=== PATIENT | male | born 1935 | race Caucasian/White ===

== ENCOUNTER 2016-09-20 12:22 | Emergency (ER) | payer MEDICARE, OTHER ==
[~2016-09-20] VITALS: Wt 92.0 kg
[~2016-09-20 12:22] MED LIST: ASPI81TA3 PO; INSU100V19 SQ; LISI20TA11 PO; MELO-109 PO; METF500T4 PO
[2016-09-20] MEDS ORDERED: ACYC800T57 PO (12:55)
[2016-09-20] MEDS ORDERED: TRAM-40 PO (12:55)
[2016-09-20] MEDS ORDERED: IBUP400T22 PO (12:55)
[2016-09-20] MEDS ORDERED: IBUPROFEN 200 MG TAB PO ONE (13:00)
[2016-09-20] MEDS ORDERED: traMADol 50 MG TAB PO ONE (13:00)
[2016-09-20] MEDS ORDERED: ACYCLOVIR 800 MG TAB PO ONE (13:00)
--- NOTE | 2016-09-20 13:01 | ERD ---
ER Documentation Chief Complaint Date/Time DATE: 09/20/16 TIME: 12:59 Chief Complaint LEFT EYE AND HEAD PAIN FOR THE PAST 3 DAYS. NO TRAUMA. NO NEURO DEF HPI 81-year-old male presents with a right-sided headache for last 3 days. It is been associated with a rash on the right side of scalp and right forehead. Denies visual changes or pain in the eye. Denies any fevers. Patient is concerned because he had some trauma to the right side of his head as a child. There is no history of new trauma. ROS All systems reviewed and are negative except as per history of present illness. Medications Home Meds Active Scripts Acyclovir* (Zovirax*) 800 Mg Tablet, 800 MG PO 5 TIMES DAILY for 10 Days, TAB Prov:YOANA SOMMERS MD 09/20/16 Tramadol Hcl* (Ultram*) 50 Mg Tablet, 50 MG PO Q6H Y for PAIN, #20 TAB Prov:YOANA SOMMERS MD 09/20/16 Ibuprofen* (Ibuprofen*) 400 Mg Tablet, 400 MG PO Q6H Y for PAIN, #14 TAB Prov:YOANA SOMMERS MD 09/20/16 Reported Medications Insulin Glargine,Hum.rec.anlog (Lantus) 100 U/Ml Vial, 0 SQ BID, #40 UNITS 08/17/11 Aspirin* (Aspirin* Chew) 81 Mg Tab.chew, 81 MG PO DAILY 08/17/11 Meloxicam* (Meloxicam*) 7.5 Mg Tablet, 7.5 MG PO DAILY 08/17/11 Lisinopril* (Lisinopril*) 20 Mg Tablet, 20 MG PO DAILY 08/17/11 Metformin* (Glucophage*) 500 Mg Tab, 500 MG PO BID, #2 08/17/11 Allergies Allergies: Coded Allergies: No Known Allergy (Unverified , 08/17/11) PMhx/Soc History of Surgery: Yes (PROSTATE CA SURGERY) Anesthesia Reaction: No Hx Neurological Disorder: No Hx Respiratory Disorders: No Hx Cardiac Disorders: No Hx Psychiatric Problems: No Hx Miscellaneous Medical Probl: No Hx Alcohol Use: No Hx Substance Use: No Hx Tobacco Use: No Physical Exam Vitals Vital Signs Date Time Temp Pulse Resp B/P Pulse Ox O2 Delivery O2 Flow Rate FiO2 09/20/16 12:25 99.3 73 21 131/81 97 Physical Exam Const: [] Alert, [id number] Head: Atraumatic Eyes: Normal Conjunctiva. Eyes are PERRLA and extraocular movements intact. There is no redness of the sclera no appreciable dendritic lesions. ENT: Normal External Ears, Nose and Mouth. Neck: Full range of motion..~ No meningismus. Resp: Clear to auscultation bilaterally Cardio: Regular rate and rhythm, no murmurs Abd: Soft, non tender, non distended. Normal bowel sounds Skin: No petechiae or purpura. There is a vesicular rash on the right scalp and right forehead and in a dermatomal distribution Back: No midline or flank tenderness Ext: No cyanosis, or edema Neur: Awake and alert Psych: Normal Mood and Affect Results 24 hrs Current Medications Medications (Trade) Dose Ordered Sig/Lisset Route PRN Reason Start Time Stop Time Status Last Admin Dose Admin Ibuprofen (Motrin) 400 mg ONCE ONCE PO 09/20/16 13:00 09/20/16 13:01 Tramadol HCl (Ultram) 50 mg ONCE ONCE PO 09/20/16 13:00 09/20/16 13:01 Acyclovir (Zovirax) 800 mg ONCE ONCE PO 09/20/16 13:00 09/20/16 13:01 Procedures/MDM Patient presents with signs and symptoms of zoster of the right scalp and forehead likely in the V1 trigeminal distribution. There is no evidence of involvement of the eye no evidence of sepsis. Patient was treated with acyclovir, tramadol and ibuprofen. He is given his first dose of acyclovir here. Patient is advised to follow-up with primary doctor this week return to the ER for new or worsening symptoms. Departure Diagnosis: Primary Impression: Shingles Herpes zoster complications: without complications Qualified Code: B02.9 - Herpes zoster without complication Condition: Stable Patient Instructions: Shingles (Herpes Zoster) Additional Instructions: Cheque otro vez con niño doctor primario en el proximo jernigan or regresa para mas o nueva simptomas. YOANA SOMMERS MD Sep 20, 2016 13:01
== END 2016-09-20 13:53 | disposition home or self-care (01) ==
LOC: FTE 12:22
DX: B02.9 Zoster without complications (principal); E11.9 Type 2 diabetes mellitus without complications; Z79.4 Long term (current) use of insulin; Z79.84 Long term (current) use of oral hypoglycemic drugs; Z79.82 Long term (current) use of aspirin; Z85.46 Personal history of malignant neoplasm of prostate
CPT/HCPCS: 99284